=== PATIENT | female | born 1985 | race Two or more races ===

== ENCOUNTER 2019-06-25 07:06 | Emergency (ER) | payer OTHER ==
[~2019-06-25] VITALS: Ht 162.6 cm; Wt 67.8 kg
--- NOTE | 2019-06-25 07:34 | NUR ---
PT AMBULATORY TO ROOM, STEADY GAIT.
--- NOTE | 2019-06-25 07:41 | NUR ---
LAB TO BEDSIDE, PT SITTING IN BED, NO SIGNS OF DISTRESS. WILL CONTINUE TO MONITOR.
--- NOTE | 2019-06-25 07:54 | NUR ---
PT TO IMAGING.
[2019-06-25 07:59] LABS: BASOPHILS # (AUTO) 0.02 x10^3/uL (0-0.1); BASOPHILS % (AUTO) 1 % (0-1); EOSINOPHILS # (AUTO) 0.03 x10^3/uL (0-0.4); EOSINOPHILS % (AUTO) 1 % (1-7); LYMPHOCYTES # (AUTO) 1.65 x10^3/uL (1-3.4); LYMPHOCYTES % (AUTO) 46 % (22-44); MD NO; MEAN CORPUSCULAR HEMOGLOBIN 31.9 pg (27.0-34.8); MEAN CORPUSCULAR HGB CONC 33.8 g/dL (32.4-35.8); MEAN CORPUSCULAR VOLUME 94.4 fL (80-100); MEAN PLATELET VOLUME 8.2 fL (7.4-10.4); MONOCYTES # (AUTO) 0.28 x10^3/uL (0.2-0.8); MONOCYTES % (AUTO) 8 % (2-9); NEUTROPHILS # (AUTO) 1.65 x10^3/uL (1.8-6.8); NEUTROPHILS % (AUTO) 46 % (42-75); PLATELET COUNT 236 x10^3/uL (130-400); RED BLOOD COUNT 4.15 x10^6/uL (3.82-5.3); RED CELL DISTRIBUTION WIDTH 12.1 % (9.6-15.2)
[2019-06-25 08:12] LABS: ANION GAP 8 mmol/L (5-15); CALCIUM 8.9 mg/dL (8.5-10.1); CHLORIDE 108 mmol/L (98-107)
[2019-06-25 08:17] LABS: CREATININE 0.89 mg/dL (0.55-1.02)
--- NOTE | 2019-06-25 08:20 | NUR ---
PT BACK FROM IMAGING, SITTING IN BED, NO SIGNS OF DISTRESS, PROVIDED BLANKET, WILL CONTINUE TO MONITOR.
[2019-06-25 08:24] VITALS: BP 123/89
--- NOTE | 2019-06-25 09:10 | NUR ---
PT PROVIDED WITH GREIF PACKAGE FOR MISCARRIAGE.
== END 2019-06-25 09:12 | disposition home or self-care (01) ==
LOC: ED 07:36
DX: O03.9 Complete or unspecified spontaneous abortion without complication (principal)
CPT/HCPCS: 36415; 76830; 80048; 84702; 85025; 86901; 99284